=== PATIENT | male | born 1965 | race Caucasian/White ===

== ENCOUNTER 2018-03-12 18:36 | Inpatient (IN) | payer OTHER, MEDICAID ==
[~2018-03-12] VITALS: Ht 160 cm; Wt 66.7 kg
[2018-03-12 18:39] VITALS: BP_SYST 120
[2018-03-12] MEDS ORDERED: VANCOMYCIN HCL 1,000 MG in D5W 250 ML IV ONE (18:45)
[2018-03-12] MEDS ORDERED: ALBUTEROL SULFATE 0.083% 2.5 MG/3 ML VIAL.NEB INH ONE (18:50)
[2018-03-12] MEDS ORDERED: IPRATROPIUM BROM 0.5 MG/2.5 ML VIAL.NEB (ATROVENT) INH ONE (18:50)
[2018-03-12] MEDS ORDERED: NACL 0.9% 3,000 ML IV ONE (19:00)
[2018-03-12] MEDS ORDERED: GENTAMICIN 80 mg/100 mL NS 100 ML IV ONE (19:00)
[2018-03-12] MEDS ORDERED: LIP20 PO (19:05)
[2018-03-12] MEDS ORDERED: ACYC800T PO (19:05)
[2018-03-12] MEDS ORDERED: EMTR1TAB17 PO (19:06)
[2018-03-12] MEDS ORDERED: RITO100T PO (19:15)
[2018-03-12] MEDS ORDERED: OMEP20CA10 PO (19:15)
[2018-03-12] MEDS ORDERED: FURO-150 PO (19:15)
[2018-03-12] MEDS ORDERED: ZOLP10TA2 PO (19:15)
[2018-03-12] MEDS ORDERED: PARO-63 PO (19:15)
[2018-03-12] MEDS ORDERED: BENZ-16 PO (19:15)
[2018-03-12] MEDS ORDERED: DICY10CA13 PO (19:15)
[2018-03-12] MEDS ORDERED: IBUP-1619 PO (19:15)
[2018-03-12] MEDS ORDERED: POTA10TA15 PO (19:15)
[2018-03-12] MEDS ORDERED: LOPE2CAP PO (19:15)
[2018-03-12] MEDS ORDERED: TYC3 PO (19:15)
[2018-03-12] MEDS ORDERED: TRAZ-218 PO (19:15)
[2018-03-12] MEDS ORDERED: DARU800T PO (19:15)
[2018-03-12 19:23] LABS: CALCIUM 9.1 mg/dL (8.4-11.0); CREATININE 0.97 mg/dL (0.55-1.30); POTASSIUM 3.9 mmol/L (3.5-5.1)
[2018-03-12] MEDS ORDERED: VANCOMYCIN HCL 1000 MG/VIAL IV ONE (19:24)
[2018-03-12 19:30] LABS: ALBUMIN 1.8 g/dL (3.4-4.8); TOTAL BILIRUBIN 0.6 mg/dL (0.0-1.0)
[2018-03-12 19:32] LABS: BASOPHILS % (AUTO) 0.2 % (0.0-2.0); EOSINOPHILS # (AUTO) 0.5 K/uL (0.0-0.4); EOSINOPHILS % (AUTO) 3.6 % (0.0-4.0); HEMATOCRIT 24.1 % (36-54); HEMOGLOBIN 8.4 g/dL (14.0-18.0); LYMPHOCYTES # (AUTO) 0.8 K/uL (1.0-5.5); LYMPHOCYTES % (AUTO) 5.7 % (20.5-51.5); MEAN CORPUSCULAR HEMOGLOBIN 34 pg (27-31); MEAN CORPUSCULAR HGB CONC 35 % (32-36); MEAN CORPUSCULAR VOLUME 97 fL (79.0-98.0); MONOCYTES # (AUTO) 0.7 K/uL (0.0-1.0); MONOCYTES % (AUTO) 4.6 % (1.7-9.3); NEUTROPHILS # (AUTO) 12.7 K/uL (1.8-7.7); NEUTROPHILS % (AUTO) 85.9 % (40.0-70.0); PLATELET COUNT (AUTO) 130 K/uL (130-430); RED BLOOD CELL COUNT(AUTO) 2.48 MIL/uL (4.2-6.2); RED CELL DISTRIBUTION WIDTH 19.7 % (9.0-15.0); WHITE BLOOD COUNT (AUTO) 14.7 K/uL (4.8-10.8)
[2018-03-12 20:00] LABS: PROTHROMBIN TIME 10.2 SECS (9.5-12.5)
[2018-03-12] MEDS ORDERED: KCL 20 mEq in D5NS 1000 mL 1,000 ML IV ONE (21:00)
[2018-03-12] MEDS ORDERED: NACL 0.9% 1,000 ML IV ONE (21:00)
[2018-03-12 21:27] VITALS: BP_SYST 138
[2018-03-12] MEDS ORDERED: PIPERACILLIN/TAZO 3.375/DEX-IS 50 ML IV SCH (22:00)
[2018-03-12] MEDS ORDERED: ZOLPIDEM TARTRATE 5 MG TABLET PO PRN (22:15)
[2018-03-12 22:30] VITALS: BP_SYST 116
[2018-03-12] MEDS ORDERED: LevALBUTEROL HCL 1.25 MG/0.5 ML *CONC.* VIAL.NEB (XOPENEX CONC.) INH SCH (23:00)
[2018-03-12 23:21] VITALS: BP_SYST 124
[2018-03-12] MEDS: HYDROmorphone 1 MG INJ. 1 MG/ML AMPUL IVP PRN (23:21)
[2018-03-12 23:30] VITALS: BP_SYST 105
[2018-03-13] VITALS (23 sets, daily range): BP systolic 86–144
[2018-03-13] MEDS ORDERED: traZODone HCL 50 MG TABLET (DESYREL) ONE (00:51)
[2018-03-13] MEDS: LevALBUTEROL HCL 1.25 MG/0.5 ML *CONC.* VIAL.NEB (XOPENEX CONC.) INH SCH ×4 (01:00→19:36)
[2018-03-13] MEDS ORDERED: AZITHROMYCIN 500 MG in NS 250 ML IV SCH (04:00)
[2018-03-13] MEDS ORDERED: AZITHROMYCIN 500 MG/VIAL (ZITHROMAX) IV ONE (04:25)
[2018-03-13] MEDS: HYDROmorphone 1 MG INJ. 1 MG/ML AMPUL IVP PRN ×5 (04:36→21:16)
[2018-03-13 06:01] LABS: CALCIUM 8.3 mg/dL (8.4-11.0); CREATININE 0.78 mg/dL (0.55-1.30); POTASSIUM 3.3 mmol/L (3.5-5.1)
[2018-03-13 07:05] LABS: BASOPHILS % (AUTO) 0.2 % (0.0-2.0); EOSINOPHILS # (AUTO) 0.6 K/uL (0.0-0.4); EOSINOPHILS % (AUTO) 3.9 % (0.0-4.0); HEMOGLOBIN 7.1 g/dL (14.0-18.0); LYMPHOCYTES # (AUTO) 0.4 K/uL (1.0-5.5); LYMPHOCYTES % (AUTO) 2.4 % (20.5-51.5); MEAN CORPUSCULAR HEMOGLOBIN 34 pg (27-31); MEAN CORPUSCULAR HGB CONC 34 % (32-36); MEAN CORPUSCULAR VOLUME 99 fL (79.0-98.0); MONOCYTES # (AUTO) 0.7 K/uL (0.0-1.0); MONOCYTES % (AUTO) 4.6 % (1.7-9.3); PLATELET COUNT (AUTO) 120 K/uL (130-430); RED BLOOD CELL COUNT(AUTO) 2.13 MIL/uL (4.2-6.2); RED CELL DISTRIBUTION WIDTH 20.6 % (9.0-15.0); WHITE BLOOD COUNT (AUTO) 15.7 K/uL (4.8-10.8)
[2018-03-13] MEDS ORDERED: OMEPRAZOLE 20 MG CAPSULE.DR (PriLOSEC) PO ONE (07:15)
[2018-03-13] MEDS: ATORVASTATIN 20 MG TABLET PO SCH (08:00)
[2018-03-13] MEDS ORDERED: VANCOMYCIN HCL 1.25 GM/NS 250 ML IV SCH (08:00)
[2018-03-13] MEDS: PARoxetine HCL 20 MG TABLET PO SCH (08:00)
[2018-03-13] MEDS: ACYCLOVIR 400 MG TABLET PO SCH (08:00)
[2018-03-13 08:10] LABS: HEMATOCRIT 21.1 % (36-54)
[2018-03-13] MEDS ORDERED: traZODone HCL 50 MG TABLET (DESYREL) PO SCH (09:00)
[2018-03-13] MEDS: LevALBUTEROL HCL 1.25 MG/0.5 ML *CONC.* VIAL.NEB (XOPENEX CONC.) INH PRN (09:24)
[2018-03-13] MEDS ORDERED: FUROSEMIDE 20 MG/2 ML VIAL IVP ONE (09:30)
[2018-03-13] MEDS ORDERED: GENTAMICIN 120 mg/100 mL NS 100 ML IV SCH (10:00)
[2018-03-13 10:18] LABS: NEUTROPHILS % (AUTO) 88.9 % (40.0-70.0)
[2018-03-13] MEDS: FLUCONAZOLE 200 mg/ NS 100 ML IV SCH ×2 (11:30→12:58)
[2018-03-13] MEDS ORDERED: OSELTAMIVIR PHOSPHATE 75 MG CAPSULE PO ONE (11:30)
[2018-03-13] MEDS: MEROPENEM 1 GM in NS 100 ML IV SCH ×2 (14:28→22:47)
[2018-03-13] MEDS ORDERED: POTASSIUM CHLORIDE 20 MEQ TAB.PRT.SR PO ONE (15:15)
[2018-03-13 16:16] LABS: BILIRUBIN,URINE NEGATIVE (NEGATIVE); BLOOD, URINE NEGATIVE (NEGATIVE); CLARITY/URINE CLEAR (CLEAR); COLOR,URINE YELLOW (YELLOW); GLUCOSE,URINE NEGATIVE (NEGATIVE); KETONES,URINE NEGATIVE (NEGATIVE); LEUKOCYTE ESTERASE ,URINE NEGATIVE (NEGATIVE); NITRITE, URINE NEGATIVE (NEGATIVE); PROTEIN URINE NEGATIVE (NEGATIVE); UROBILINOGEN,URINE 0.2 (0.2-1.0)
[2018-03-13] MEDS ORDERED: DILTIAZEM HCL 125 MG in D5W 100 ML IV SCH (17:30)
[2018-03-13] MEDS ORDERED: DIGOXIN 0.5 MG/2 ML AMP IVP ONE (17:30)
[2018-03-13] MEDS: OSELTAMIVIR PHOSPHATE 75 MG CAPSULE PO SCH (20:49)
[2018-03-13] MEDS: traZODone HCL 50 MG TABLET (DESYREL) PO SCH (20:50)
[2018-03-13 22:24] LABS: BODY FLUID GLUCOSE 131 mg/dL; BODY FLUID TOTAL PROTEIN 2.9 g/dL
[2018-03-13 23:45] LABS: BODY FLUID SOURCE/ TYPE PLEURAL; SOURCE/TYPE ,BODY FLUID PLEURAL
[2018-03-13 23:46] LABS: APPEARANCE,SPUN,BODY FLUID CLEAR (CLEAR); BF APPEARANCE UNSPUN HAZY (CLEAR)
[2018-03-13 23:47] LABS: BODY FLUID COLOR RED (LT YELLOW)
[2018-03-13 23:58] LABS: BODY FLUID TOTAL VOLUME 800 mL; RBC, BODY FLUID 16872 /uL; WBC, BODY FLUID 164 /uL
[2018-03-13 23:59] LABS: EOSINOPHIL, BODY FLUID 25 %; LYMPHOCYTES, BODY FLUID 17 %; MONOCYTES,BODY FLUID 13 %; NEUTROPHIL, BODY FLUID 45 %
[2018-03-14] VITALS (24 sets, daily range): BP systolic 82–110
[2018-03-14] MEDS: LevALBUTEROL HCL 1.25 MG/0.5 ML *CONC.* VIAL.NEB (XOPENEX CONC.) INH SCH ×4 (02:08→20:34)
[2018-03-14] MEDS: ACETAMINOPHEN/CODEINE 300 MG-30 MG TABLET PO PRN ×3 (02:32→21:38)
[2018-03-14 05:31] LABS: ALBUMIN 1.4 g/dL (3.4-4.8); CALCIUM 8.1 mg/dL (8.4-11.0); CREATININE 0.74 mg/dL (0.55-1.30)
[2018-03-14 05:38] LABS: TOTAL IRON BIND. CAPACITY 110 ug/dL (250-450)
[2018-03-14 05:39] LABS: POTASSIUM 3.3 mmol/L (3.5-5.1)
[2018-03-14] MEDS: OMEPRAZOLE 20 MG CAPSULE.DR (PriLOSEC) PO SCH (06:23)
[2018-03-14] MEDS: MEROPENEM 1 GM in NS 100 ML IV SCH ×3 (06:23→21:39)
[2018-03-14 06:35] LABS: BASOPHILS % (AUTO) 0.1 % (0.0-2.0); EOSINOPHILS # (AUTO) 0.8 K/uL (0.0-0.4); HEMATOCRIT 22.6 % (36-54); LYMPHOCYTES # (AUTO) 0.5 K/uL (1.0-5.5); LYMPHOCYTES % (AUTO) 3.6 % (20.5-51.5); MEAN CORPUSCULAR HEMOGLOBIN 33 pg (27-31); MEAN CORPUSCULAR HGB CONC 34 % (32-36); MEAN CORPUSCULAR VOLUME 98 fL (79.0-98.0); MONOCYTES # (AUTO) 0.6 K/uL (0.0-1.0); MONOCYTES % (AUTO) 4.7 % (1.7-9.3); NEUTROPHILS # (AUTO) 10.7 K/uL (1.8-7.7); NEUTROPHILS % (AUTO) 85.6 % (40.0-70.0); RED BLOOD CELL COUNT(AUTO) 2.31 MIL/uL (4.2-6.2); RED CELL DISTRIBUTION WIDTH 19.8 % (9.0-15.0); WHITE BLOOD COUNT (AUTO) 12.6 K/uL (4.8-10.8)
[2018-03-14] MEDS: HYDROmorphone 1 MG INJ. 1 MG/ML AMPUL IVP PRN ×2 (06:41→16:31)
[2018-03-14 07:07] LABS: HEMOGLOBIN 7.6 g/dL (14.0-18.0)
[2018-03-14 08:00] LABS: PLATELET COUNT (AUTO) 82 K/uL (130-430)
[2018-03-14] MEDS: AZITHROMYCIN 500 MG in NS 250 ML IV SCH (08:48)
[2018-03-14] MEDS: PARoxetine HCL 20 MG TABLET PO SCH (08:49)
[2018-03-14] MEDS: OSELTAMIVIR PHOSPHATE 75 MG CAPSULE PO SCH ×2 (08:49→21:38)
[2018-03-14] MEDS: ACYCLOVIR 400 MG TABLET PO SCH (08:49)
[2018-03-14] MEDS: ATORVASTATIN 20 MG TABLET PO SCH (08:49)
[2018-03-14] MEDS ORDERED: POTASSIUM CHLORIDE 20 MEQ TAB.PRT.SR PO ONE (11:15)
[2018-03-14] MEDS: FLUCONAZOLE 200 mg/ NS 100 ML IV SCH (11:38)
[2018-03-14] MEDS ORDERED: POTASSIUM CHLORIDE 20 MEQ/PKT PACKET PO ONE (14:00)
[2018-03-14] MEDS: PROMETHAZINE-DM 6.25 MG-15 MG/5 ML UDC PO PRN ×2 (18:35→21:38)
[2018-03-14] MEDS: traZODone HCL 50 MG TABLET (DESYREL) PO SCH (21:38)
[2018-03-15] VITALS (24 sets, daily range): BP systolic 90–111
[2018-03-15] MEDS: LevALBUTEROL HCL 1.25 MG/0.5 ML *CONC.* VIAL.NEB (XOPENEX CONC.) INH SCH ×4 (00:21→19:52)
[2018-03-15] MEDS: ACETAMINOPHEN/CODEINE 300 MG-30 MG TABLET PO PRN ×4 (03:48→17:29)
[2018-03-15] MEDS: HYDROmorphone 1 MG INJ. 1 MG/ML AMPUL IVP PRN ×4 (04:25→21:27)
[2018-03-15] MEDS: MEROPENEM 1 GM in NS 100 ML IV SCH ×3 (05:12→21:25)
[2018-03-15] MEDS: OMEPRAZOLE 20 MG CAPSULE.DR (PriLOSEC) PO SCH (05:12)
[2018-03-15 06:19] LABS: CALCIUM 8.6 mg/dL (8.4-11.0); CREATININE 0.67 mg/dL (0.55-1.30); POTASSIUM 3.6 mmol/L (3.5-5.1)
[2018-03-15 07:23] LABS: HEMATOCRIT 23.8 % (36-54); HEMOGLOBIN 7.8 g/dL (14.0-18.0); MEAN CORPUSCULAR HEMOGLOBIN 33 pg (27-31); MEAN CORPUSCULAR HGB CONC 33 % (32-36); MEAN CORPUSCULAR VOLUME 99 fL (79.0-98.0); RED BLOOD CELL COUNT(AUTO) 2.41 MIL/uL (4.2-6.2); RED CELL DISTRIBUTION WIDTH 20.5 % (9.0-15.0); WHITE BLOOD COUNT (AUTO) 14.5 K/uL (4.8-10.8)
[2018-03-15 07:24] LABS: BASOPHILS % (AUTO) 0.2 % (0.0-2.0); EOSINOPHILS % (AUTO) 6.7 % (0.0-4.0); LYMPHOCYTES # (AUTO) 0.5 K/uL (1.0-5.5); LYMPHOCYTES % (AUTO) 3.2 % (20.5-51.5); MONOCYTES # (AUTO) 0.7 K/uL (0.0-1.0); MONOCYTES % (AUTO) 4.7 % (1.7-9.3); NEUTROPHILS # (AUTO) 12.3 K/uL (1.8-7.7); NEUTROPHILS % (AUTO) 85.2 % (40.0-70.0)
[2018-03-15 08:06] LABS: FOLATE (FOLIC ACID) 4.5 ng/mL (>3.0)
[2018-03-15 08:07] LABS: PLATELET COUNT (AUTO) 95 K/uL (130-430)
[2018-03-15] MEDS: AZITHROMYCIN 500 MG in NS 250 ML IV SCH (08:58)
[2018-03-15] MEDS: OSELTAMIVIR PHOSPHATE 75 MG CAPSULE PO SCH ×2 (08:59→21:25)
[2018-03-15] MEDS: PROMETHAZINE-DM 6.25 MG-15 MG/5 ML UDC PO PRN ×2 (08:59→17:29)
[2018-03-15] MEDS: ATORVASTATIN 20 MG TABLET PO SCH (08:59)
[2018-03-15] MEDS: ACYCLOVIR 400 MG TABLET PO SCH (08:59)
[2018-03-15] MEDS: PARoxetine HCL 20 MG TABLET PO SCH (08:59)
[2018-03-15] MEDS ORDERED: POTASSIUM CHLORIDE 20 MEQ TAB.PRT.SR PO ONE (11:15)
[2018-03-15] MEDS: FLUCONAZOLE 200 mg/ NS 100 ML IV SCH (12:06)
[2018-03-15] MEDS ORDERED: NOREPINEPHRINE BITARTRATE 4 MG in NS 246 ML IV PRN (12:30)
[2018-03-15] MEDS: BUDESONIDE 0.5 MG/2 ML AMPUL.NEB INH SCH (20:05)
[2018-03-15] MEDS: traZODone HCL 50 MG TABLET (DESYREL) PO SCH (21:25)
[2018-03-16] VITALS (24 sets, daily range): BP systolic 96–120
[2018-03-16] MEDS: ACETAMINOPHEN/CODEINE 300 MG-30 MG TABLET PO PRN ×4 (00:47→19:46)
[2018-03-16] MEDS: PROMETHAZINE-DM 6.25 MG-15 MG/5 ML UDC PO PRN ×5 (00:48→23:45)
[2018-03-16] MEDS: LevALBUTEROL HCL 1.25 MG/0.5 ML *CONC.* VIAL.NEB (XOPENEX CONC.) INH SCH ×4 (02:25→19:59)
[2018-03-16] MEDS: OMEPRAZOLE 20 MG CAPSULE.DR (PriLOSEC) PO SCH (05:20)
[2018-03-16] MEDS: MEROPENEM 1 GM in NS 100 ML IV SCH ×3 (05:21→21:00)
[2018-03-16] MEDS: HYDROmorphone 1 MG INJ. 1 MG/ML AMPUL IVP PRN ×4 (05:22→20:59)
[2018-03-16 06:21] LABS: BASOPHILS % (AUTO) 0.1 % (0.0-2.0); EOSINOPHILS # (AUTO) 1.4 K/uL (0.0-0.4); EOSINOPHILS % (AUTO) 9.3 % (0.0-4.0); HEMATOCRIT 23.8 % (36-54); LYMPHOCYTES # (AUTO) 0.4 K/uL (1.0-5.5); LYMPHOCYTES % (AUTO) 2.8 % (20.5-51.5); MEAN CORPUSCULAR HEMOGLOBIN 33 pg (27-31); MEAN CORPUSCULAR HGB CONC 34 % (32-36); MEAN CORPUSCULAR VOLUME 99 fL (79.0-98.0); MONOCYTES # (AUTO) 0.6 K/uL (0.0-1.0); MONOCYTES % (AUTO) 4.1 % (1.7-9.3); NEUTROPHILS # (AUTO) 12.9 K/uL (1.8-7.7); NEUTROPHILS % (AUTO) 83.7 % (40.0-70.0); PLATELET COUNT (AUTO) 79 K/uL (130-430); RED BLOOD CELL COUNT(AUTO) 2.41 MIL/uL (4.2-6.2); WHITE BLOOD COUNT (AUTO) 15.3 K/uL (4.8-10.8)
[2018-03-16 06:54] LABS: CALCIUM 9.4 mg/dL (8.4-11.0); CREATININE 0.76 mg/dL (0.55-1.30); POTASSIUM 3.8 mmol/L (3.5-5.1)
[2018-03-16 07:01] LABS: ALBUMIN 1.4 g/dL (3.4-4.8); TOTAL BILIRUBIN 0.4 mg/dL (0.0-1.0)
[2018-03-16] MEDS: ACYCLOVIR 400 MG TABLET PO SCH (08:17)
[2018-03-16] MEDS: PARoxetine HCL 20 MG TABLET PO SCH (08:17)
[2018-03-16] MEDS: ATORVASTATIN 20 MG TABLET PO SCH (08:17)
[2018-03-16] MEDS: OSELTAMIVIR PHOSPHATE 75 MG CAPSULE PO SCH ×2 (08:17→20:58)
[2018-03-16] MEDS: AZITHROMYCIN 500 MG in NS 250 ML IV SCH (08:17)
[2018-03-16] MEDS: BUDESONIDE 0.5 MG/2 ML AMPUL.NEB INH SCH ×2 (10:03→22:00)
[2018-03-16 10:08] LABS: RED CELL DISTRIBUTION WIDTH 19.9 % (9.0-15.0)
[2018-03-16] MEDS ORDERED: RITONAVIR 100 MG CAPSULE (NORVIR) PO SCH (10:45)
[2018-03-16] MEDS ORDERED: PATIENT'S OWN TABLET PO SCH (10:45)
[2018-03-16] MEDS: FLUCONAZOLE 200 mg/ NS 100 ML IV SCH (11:13)
[2018-03-16] MEDS ORDERED: RITONAVIR 100 MG PO ONE (12:00)
[2018-03-16] MEDS ORDERED: EMTRICITABINE PO ONE (12:00)
[2018-03-16] MEDS ORDERED: TENOFOVIR PO ONE (12:00)
[2018-03-16] MEDS ORDERED: DARUNAVIR 800 MG PO ONE (12:00)
[2018-03-16] MEDS: traZODone HCL 50 MG TABLET (DESYREL) PO SCH (20:58)
[2018-03-17] VITALS (25 sets, daily range): BP systolic 91–118
[2018-03-17] MEDS: LevALBUTEROL HCL 1.25 MG/0.5 ML *CONC.* VIAL.NEB (XOPENEX CONC.) INH SCH ×4 (00:54→19:33)
[2018-03-17] MEDS: HYDROmorphone 1 MG INJ. 1 MG/ML AMPUL IVP PRN ×5 (02:38→21:47)
[2018-03-17] MEDS: OMEPRAZOLE 20 MG CAPSULE.DR (PriLOSEC) PO SCH (05:03)
[2018-03-17] MEDS: MEROPENEM 1 GM in NS 100 ML IV SCH ×3 (05:03→21:47)
[2018-03-17] MEDS: PROMETHAZINE-DM 6.25 MG-15 MG/5 ML UDC PO PRN ×4 (05:03→20:56)
[2018-03-17 07:02] LABS: CALCIUM 9.4 mg/dL (8.4-11.0); CREATININE 0.84 mg/dL (0.55-1.30); POTASSIUM 3.7 mmol/L (3.5-5.1)
[2018-03-17 07:04] LABS: BASOPHILS % (AUTO) 0.1 % (0.0-2.0); EOSINOPHILS # (AUTO) 1.6 K/uL (0.0-0.4); EOSINOPHILS % (AUTO) 10.4 % (0.0-4.0); HEMATOCRIT 22.5 % (36-54); HEMOGLOBIN 7.5 g/dL (14.0-18.0); LYMPHOCYTES # (AUTO) 0.5 K/uL (1.0-5.5); LYMPHOCYTES % (AUTO) 3.3 % (20.5-51.5); MEAN CORPUSCULAR HEMOGLOBIN 33 pg (27-31); MEAN CORPUSCULAR HGB CONC 34 % (32-36); MEAN CORPUSCULAR VOLUME 100 fL (79.0-98.0); MONOCYTES % (AUTO) 6.1 % (1.7-9.3); NEUTROPHILS # (AUTO) 12.6 K/uL (1.8-7.7); PLATELET COUNT (AUTO) 85 K/uL (130-430); RED BLOOD CELL COUNT(AUTO) 2.25 MIL/uL (4.2-6.2); RED CELL DISTRIBUTION WIDTH 20.8 % (9.0-15.0); WHITE BLOOD COUNT (AUTO) 15.7 K/uL (4.8-10.8)
[2018-03-17 07:09] LABS: ALBUMIN 1.4 g/dL (3.4-4.8); TOTAL BILIRUBIN 0.4 mg/dL (0.0-1.0)
[2018-03-17] MEDS: BUDESONIDE 0.5 MG/2 ML AMPUL.NEB INH SCH ×2 (08:04→21:29)
[2018-03-17] MEDS: ACYCLOVIR 400 MG TABLET PO SCH (08:53)
[2018-03-17] MEDS: AZITHROMYCIN 500 MG in NS 250 ML IV SCH (08:53)
[2018-03-17] MEDS: OSELTAMIVIR PHOSPHATE 75 MG CAPSULE PO SCH ×2 (08:53→20:48)
[2018-03-17] MEDS: ATORVASTATIN 20 MG TABLET PO SCH (08:53)
[2018-03-17] MEDS: PARoxetine HCL 20 MG TABLET PO SCH (08:53)
[2018-03-17] MEDS: RITONAVIR 100 MG PO SCH (08:55)
[2018-03-17] MEDS: DARUNAVIR 800 MG PO SCH (08:55)
[2018-03-17] MEDS: TENOFOVIR PO SCH (08:56)
[2018-03-17] MEDS: EMTRICITABINE PO SCH (08:56)
[2018-03-17] MEDS: FLUCONAZOLE 200 mg/ NS 100 ML IV SCH (10:56)
[2018-03-17] MEDS ORDERED: FUROSEMIDE 20 MG/2 ML VIAL IVP ONE (11:15)
[2018-03-17] MEDS ORDERED: FUROSEMIDE 40 MG/4 ML VIAL IVP ONE (11:15)
[2018-03-17 11:28] LABS: NEUTROPHILS % (AUTO) 80.1 % (40.0-70.0)
[2018-03-17] MEDS: ALBUMIN HUMAN 25% 50 ML IV SCH ×3 (12:08→22:59)
[2018-03-17] MEDS: traZODone HCL 50 MG TABLET (DESYREL) PO SCH (20:48)
[2018-03-18] VITALS (24 sets, daily range): BP systolic 91–127
[2018-03-18] MEDS: LevALBUTEROL HCL 1.25 MG/0.5 ML *CONC.* VIAL.NEB (XOPENEX CONC.) INH SCH ×4 (01:17→19:41)
[2018-03-18] MEDS: HYDROmorphone 1 MG INJ. 1 MG/ML AMPUL IVP PRN ×5 (02:03→20:33)
[2018-03-18] MEDS: PROMETHAZINE-DM 6.25 MG-15 MG/5 ML UDC PO PRN ×2 (03:45→08:05)
[2018-03-18] MEDS: MEROPENEM 1 GM in NS 100 ML IV SCH ×3 (05:46→22:09)
[2018-03-18] MEDS: OMEPRAZOLE 20 MG CAPSULE.DR (PriLOSEC) PO SCH (05:46)
[2018-03-18 07:09] LABS: ALBUMIN 1.8 g/dL (3.4-4.8); CALCIUM 9.6 mg/dL (8.4-11.0); CREATININE 0.73 mg/dL (0.55-1.30); POTASSIUM 3.2 mmol/L (3.5-5.1); TOTAL BILIRUBIN 0.5 mg/dL (0.0-1.0)
[2018-03-18 07:12] LABS: BASOPHILS % (AUTO) 0.1 % (0.0-2.0); EOSINOPHILS # (AUTO) 1.6 K/uL (0.0-0.4); EOSINOPHILS % (AUTO) 11.4 % (0.0-4.0); LYMPHOCYTES # (AUTO) 0.5 K/uL (1.0-5.5); LYMPHOCYTES % (AUTO) 3.6 % (20.5-51.5); MEAN CORPUSCULAR HEMOGLOBIN 33 pg (27-31); MEAN CORPUSCULAR HGB CONC 33 % (32-36); MEAN CORPUSCULAR VOLUME 100 fL (79.0-98.0); MONOCYTES # (AUTO) 0.9 K/uL (0.0-1.0); MONOCYTES % (AUTO) 6.6 % (1.7-9.3); NEUTROPHILS # (AUTO) 10.9 K/uL (1.8-7.7); PLATELET COUNT (AUTO) 84 K/uL (130-430); RED BLOOD CELL COUNT(AUTO) 2.13 MIL/uL (4.2-6.2); RED CELL DISTRIBUTION WIDTH 20.4 % (9.0-15.0); WHITE BLOOD COUNT (AUTO) 13.9 K/uL (4.8-10.8)
[2018-03-18] MEDS: BUDESONIDE 0.5 MG/2 ML AMPUL.NEB INH SCH ×2 (07:51→21:42)
[2018-03-18] MEDS: AZITHROMYCIN 500 MG in NS 250 ML IV SCH (08:05)
[2018-03-18] MEDS: ATORVASTATIN 20 MG TABLET PO SCH (08:05)
[2018-03-18] MEDS: OSELTAMIVIR PHOSPHATE 75 MG CAPSULE PO SCH (08:05)
[2018-03-18] MEDS: PARoxetine HCL 20 MG TABLET PO SCH (08:05)
[2018-03-18] MEDS: ACYCLOVIR 400 MG TABLET PO SCH (08:05)
[2018-03-18] MEDS: DARUNAVIR 800 MG PO SCH (08:06)
[2018-03-18] MEDS: TENOFOVIR PO SCH (08:07)
[2018-03-18] MEDS: EMTRICITABINE PO SCH (08:07)
[2018-03-18] MEDS: RITONAVIR 100 MG PO SCH (08:07)
[2018-03-18 08:21] LABS: HEMATOCRIT 21.3 % (36-54)
[2018-03-18] MEDS ORDERED: POTASSIUM CHLORIDE 20 MEQ TAB.PRT.SR PO ONE (10:15)
[2018-03-18] MEDS ORDERED: FUROSEMIDE 20 MG/2 ML VIAL IVP ONE (10:15)
[2018-03-18] MEDS: FLUCONAZOLE 200 mg/ NS 100 ML IV SCH (11:20)
[2018-03-18 11:28] LABS: NEUTROPHILS % (AUTO) 78.3 % (40.0-70.0)
[2018-03-18] MEDS: ACETAMINOPHEN/CODEINE 300 MG-30 MG TABLET PO PRN (18:58)
[2018-03-18] MEDS: traZODone HCL 50 MG TABLET (DESYREL) PO SCH (20:32)
[2018-03-19] VITALS (24 sets, daily range): BP systolic 90–121
[2018-03-19] MEDS: LevALBUTEROL HCL 1.25 MG/0.5 ML *CONC.* VIAL.NEB (XOPENEX CONC.) INH SCH ×4 (00:52→19:37)
[2018-03-19] MEDS: PROMETHAZINE-DM 6.25 MG-15 MG/5 ML UDC PO PRN ×3 (01:30→15:53)
[2018-03-19] MEDS: ACETAMINOPHEN/CODEINE 300 MG-30 MG TABLET PO PRN ×2 (01:30→19:48)
[2018-03-19] MEDS: HYDROmorphone 1 MG INJ. 1 MG/ML AMPUL IVP PRN ×5 (02:39→21:16)
[2018-03-19] MEDS: MEROPENEM 1 GM in NS 100 ML IV SCH ×3 (05:43→20:59)
[2018-03-19] MEDS: OMEPRAZOLE 20 MG CAPSULE.DR (PriLOSEC) PO SCH (05:43)
[2018-03-19 06:41] LABS: BASOPHILS % (AUTO) 0.3 % (0.0-2.0); EOSINOPHILS % (AUTO) 13.1 % (0.0-4.0); HEMATOCRIT 25.6 % (36-54); HEMOGLOBIN 8.4 g/dL (14.0-18.0); LYMPHOCYTES # (AUTO) 0.5 K/uL (1.0-5.5); LYMPHOCYTES % (AUTO) 3.6 % (20.5-51.5); MEAN CORPUSCULAR HEMOGLOBIN 32 pg (27-31); MEAN CORPUSCULAR HGB CONC 33 % (32-36); MEAN CORPUSCULAR VOLUME 98 fL (79.0-98.0); MONOCYTES # (AUTO) 0.9 K/uL (0.0-1.0); MONOCYTES % (AUTO) 6.2 % (1.7-9.3); NEUTROPHILS # (AUTO) 11.8 K/uL (1.8-7.7); PLATELET COUNT (AUTO) 86 K/uL (130-430); RED BLOOD CELL COUNT(AUTO) 2.63 MIL/uL (4.2-6.2); RED CELL DISTRIBUTION WIDTH 21.5 % (9.0-15.0); WHITE BLOOD COUNT (AUTO) 15.2 K/uL (4.8-10.8)
[2018-03-19 06:46] LABS: CALCIUM 10.2 mg/dL (8.4-11.0); CREATININE 0.73 mg/dL (0.55-1.30); POTASSIUM 3.6 mmol/L (3.5-5.1)
[2018-03-19 08:16] LABS: NEUTROPHILS % (AUTO) 76.8 % (40.0-70.0)
[2018-03-19] MEDS: PARoxetine HCL 20 MG TABLET PO SCH (08:33)
[2018-03-19] MEDS: ATORVASTATIN 20 MG TABLET PO SCH (08:33)
[2018-03-19] MEDS: ACYCLOVIR 400 MG TABLET PO SCH (08:34)
[2018-03-19] MEDS: TENOFOVIR PO SCH (08:35)
[2018-03-19] MEDS: EMTRICITABINE PO SCH (08:35)
[2018-03-19] MEDS: DARUNAVIR 800 MG PO SCH (08:36)
[2018-03-19] MEDS: RITONAVIR 100 MG PO SCH (08:37)
[2018-03-19] MEDS: BUDESONIDE 0.5 MG/2 ML AMPUL.NEB INH SCH ×2 (09:05→20:00)
[2018-03-19] MEDS ORDERED: POTASSIUM CHLORIDE 20 MEQ TAB.PRT.SR PO ONE (10:30)
[2018-03-19] MEDS: FLUCONAZOLE 200 mg/ NS 100 ML IV SCH (10:44)
[2018-03-19] MEDS: traZODone HCL 50 MG TABLET (DESYREL) PO SCH (20:59)
[2018-03-20] VITALS (24 sets, daily range): BP systolic 91–130
[2018-03-20] MEDS: LevALBUTEROL HCL 1.25 MG/0.5 ML *CONC.* VIAL.NEB (XOPENEX CONC.) INH SCH ×4 (01:18→18:10)
[2018-03-20] MEDS: HYDROmorphone 1 MG INJ. 1 MG/ML AMPUL IVP PRN ×5 (01:44→20:17)
[2018-03-20] MEDS: PROMETHAZINE-DM 6.25 MG-15 MG/5 ML UDC PO PRN ×3 (01:44→21:00)
[2018-03-20] MEDS: OMEPRAZOLE 20 MG CAPSULE.DR (PriLOSEC) PO SCH (05:01)
[2018-03-20] MEDS: PARoxetine HCL 20 MG TABLET PO SCH (08:18)
[2018-03-20] MEDS: ATORVASTATIN 20 MG TABLET PO SCH (08:18)
[2018-03-20] MEDS: TENOFOVIR PO SCH (08:22)
[2018-03-20] MEDS: EMTRICITABINE PO SCH (08:22)
[2018-03-20] MEDS: DARUNAVIR 800 MG PO SCH (08:23)
[2018-03-20] MEDS: RITONAVIR 100 MG PO SCH (08:27)
[2018-03-20] MEDS: BUDESONIDE 0.5 MG/2 ML AMPUL.NEB INH SCH ×2 (09:04→21:03)
[2018-03-20 09:38] LABS: BASOPHILS % (AUTO) 0.2 % (0.0-2.0); EOSINOPHILS # (AUTO) 1.6 K/uL (0.0-0.4); EOSINOPHILS % (AUTO) 9.6 % (0.0-4.0); HEMATOCRIT 26.5 % (36-54); HEMOGLOBIN 8.7 g/dL (14.0-18.0); LYMPHOCYTES # (AUTO) 0.6 K/uL (1.0-5.5); LYMPHOCYTES % (AUTO) 3.8 % (20.5-51.5); MEAN CORPUSCULAR HEMOGLOBIN 32 pg (27-31); MEAN CORPUSCULAR HGB CONC 33 % (32-36); MEAN CORPUSCULAR VOLUME 97 fL (79.0-98.0); MONOCYTES # (AUTO) 0.9 K/uL (0.0-1.0); MONOCYTES % (AUTO) 5.5 % (1.7-9.3); NEUTROPHILS # (AUTO) 13.2 K/uL (1.8-7.7); PLATELET COUNT (AUTO) 85 K/uL (130-430); RED BLOOD CELL COUNT(AUTO) 2.73 MIL/uL (4.2-6.2); RED CELL DISTRIBUTION WIDTH 20.7 % (9.0-15.0); WHITE BLOOD COUNT (AUTO) 16.3 K/uL (4.8-10.8)
[2018-03-20 10:57] LABS: NEUTROPHILS % (AUTO) 80.9 % (40.0-70.0)
[2018-03-20] MEDS: MEROPENEM 1 GM IVPB PREMIX 50 ML IV SCH ×2 (11:32→19:22)
[2018-03-20] MEDS: traZODone HCL 50 MG TABLET (DESYREL) PO SCH (20:17)
[2018-03-21] VITALS (25 sets, daily range): BP systolic 92–126
[2018-03-21] MEDS: LevALBUTEROL HCL 1.25 MG/0.5 ML *CONC.* VIAL.NEB (XOPENEX CONC.) INH SCH ×4 (01:12→19:55)
[2018-03-21] MEDS ORDERED: ACETAMINOPHEN 325 MG TABLET PO PRN (02:00)
[2018-03-21] MEDS: MEROPENEM 1 GM IVPB PREMIX 50 ML IV SCH ×3 (04:17→20:12)
[2018-03-21] MEDS: OMEPRAZOLE 20 MG CAPSULE.DR (PriLOSEC) PO SCH (05:09)
[2018-03-21] MEDS: HYDROmorphone 1 MG INJ. 1 MG/ML AMPUL IVP PRN ×4 (06:12→22:02)
[2018-03-21 06:38] LABS: BASOPHILS % (AUTO) 0.2 % (0.0-2.0); EOSINOPHILS # (AUTO) 0.9 K/uL (0.0-0.4); EOSINOPHILS % (AUTO) 4.6 % (0.0-4.0); HEMATOCRIT 26.1 % (36-54); HEMOGLOBIN 8.5 g/dL (14.0-18.0); LYMPHOCYTES # (AUTO) 0.6 K/uL (1.0-5.5); LYMPHOCYTES % (AUTO) 3.1 % (20.5-51.5); MEAN CORPUSCULAR HEMOGLOBIN 32 pg (27-31); MEAN CORPUSCULAR HGB CONC 33 % (32-36); MEAN CORPUSCULAR VOLUME 99 fL (79.0-98.0); MONOCYTES # (AUTO) 1.2 K/uL (0.0-1.0); MONOCYTES % (AUTO) 6.3 % (1.7-9.3); NEUTROPHILS # (AUTO) 16.2 K/uL (1.8-7.7); NEUTROPHILS % (AUTO) 85.8 % (40.0-70.0); PLATELET COUNT (AUTO) 78 K/uL (130-430); RED BLOOD CELL COUNT(AUTO) 2.64 MIL/uL (4.2-6.2); RED CELL DISTRIBUTION WIDTH 21.5 % (9.0-15.0); WHITE BLOOD COUNT (AUTO) 18.9 K/uL (4.8-10.8)
[2018-03-21] MEDS: RITONAVIR 100 MG PO SCH (09:09)
[2018-03-21] MEDS: ATORVASTATIN 20 MG TABLET PO SCH (09:09)
[2018-03-21] MEDS: PARoxetine HCL 20 MG TABLET PO SCH (09:09)
[2018-03-21] MEDS: TENOFOVIR PO SCH (09:11)
[2018-03-21] MEDS: DARUNAVIR 800 MG PO SCH (09:11)
[2018-03-21] MEDS: EMTRICITABINE PO SCH (09:11)
[2018-03-21] MEDS: BUDESONIDE 0.5 MG/2 ML AMPUL.NEB INH SCH ×2 (09:16→22:31)
[2018-03-21] MEDS: EPOETIN ALFA 3,000 UNITS/ML VIAL SUBCUT SCH (09:19)
[2018-03-21] MEDS: PROMETHAZINE-DM 6.25 MG-15 MG/5 ML UDC PO PRN (11:21)
[2018-03-21] MEDS: AZITHROMYCIN 500 MG in NS 250 ML IV SCH (13:08)
[2018-03-21] MEDS: traZODone HCL 50 MG TABLET (DESYREL) PO SCH (21:00)
[2018-03-21] MEDS ORDERED: BUDESONIDE 0.5 MG/2 ML AMPUL.NEB ONE (22:38)
[2018-03-22] VITALS (24 sets, daily range): BP systolic 93–122
[2018-03-22] MEDS: LevALBUTEROL HCL 1.25 MG/0.5 ML *CONC.* VIAL.NEB (XOPENEX CONC.) INH SCH ×4 (01:23→20:18)
[2018-03-22] MEDS: HYDROmorphone 1 MG INJ. 1 MG/ML AMPUL IVP PRN ×6 (02:24→23:03)
[2018-03-22] MEDS: MEROPENEM 1 GM IVPB PREMIX 50 ML IV SCH (03:09)
[2018-03-22 06:12] LABS: ALBUMIN 1.5 g/dL (3.4-4.8); CREATININE 0.76 mg/dL (0.55-1.30); POTASSIUM 3.4 mmol/L (3.5-5.1); TOTAL BILIRUBIN 0.5 mg/dL (0.0-1.0)
[2018-03-22 06:31] LABS: BASOPHILS # (AUTO) 0.1 K/uL (0.0-0.2); BASOPHILS % (AUTO) 0.3 % (0.0-2.0); EOSINOPHILS # (AUTO) 0.8 K/uL (0.0-0.4); EOSINOPHILS % (AUTO) 4.3 % (0.0-4.0); HEMATOCRIT 23.9 % (36-54); HEMOGLOBIN 7.7 g/dL (14.0-18.0); LYMPHOCYTES # (AUTO) 0.6 K/uL (1.0-5.5); MEAN CORPUSCULAR HEMOGLOBIN 32 pg (27-31); MEAN CORPUSCULAR HGB CONC 32 % (32-36); MEAN CORPUSCULAR VOLUME 99 fL (79.0-98.0); MONOCYTES % (AUTO) 5.5 % (1.7-9.3); NEUTROPHILS # (AUTO) 16.5 K/uL (1.8-7.7); NEUTROPHILS % (AUTO) 86.9 % (40.0-70.0); PLATELET COUNT (AUTO) 76 K/uL (130-430); RED BLOOD CELL COUNT(AUTO) 2.41 MIL/uL (4.2-6.2); RED CELL DISTRIBUTION WIDTH 21.4 % (9.0-15.0)
[2018-03-22] MEDS: OMEPRAZOLE 20 MG CAPSULE.DR (PriLOSEC) PO SCH (06:46)
[2018-03-22] MEDS ORDERED: HYDROmorphone 1 MG INJ. 1 MG/ML AMPUL ONE (06:48)
[2018-03-22] MEDS: EMTRICITABINE PO SCH (08:25)
[2018-03-22] MEDS: DARUNAVIR 800 MG PO SCH (08:25)
[2018-03-22] MEDS: ATORVASTATIN 20 MG TABLET PO SCH (08:25)
[2018-03-22] MEDS: TENOFOVIR PO SCH (08:25)
[2018-03-22] MEDS: RITONAVIR 100 MG PO SCH (08:26)
[2018-03-22] MEDS: PARoxetine HCL 20 MG TABLET PO SCH (08:26)
[2018-03-22] MEDS: PROMETHAZINE-DM 6.25 MG-15 MG/5 ML UDC PO PRN (09:44)
[2018-03-22] MEDS: BUDESONIDE 0.5 MG/2 ML AMPUL.NEB INH SCH ×2 (09:46→20:54)
[2018-03-22] MEDS ORDERED: ACETAMINOPHEN 325 MG TABLET PO PRN (10:30)
[2018-03-22] MEDS: MEROPENEM 1 GM in NS 100 ML IV SCH ×2 (10:34→21:14)
[2018-03-22] MEDS: AZITHROMYCIN 500 MG in NS 250 ML IV SCH (11:01)
[2018-03-22] MEDS: traZODone HCL 50 MG TABLET (DESYREL) PO SCH (21:00)
[2018-03-23] VITALS (22 sets, daily range): BP systolic 92–117
[2018-03-23] MEDS: LevALBUTEROL HCL 1.25 MG/0.5 ML *CONC.* VIAL.NEB (XOPENEX CONC.) INH SCH ×4 (01:07→19:55)
[2018-03-23] MEDS: MEROPENEM 1 GM in NS 100 ML IV SCH ×3 (03:37→19:33)
[2018-03-23] MEDS: HYDROmorphone 1 MG INJ. 1 MG/ML AMPUL IVP PRN ×5 (03:38→21:10)
[2018-03-23] MEDS: OMEPRAZOLE 20 MG CAPSULE.DR (PriLOSEC) PO SCH (05:47)
[2018-03-23] MEDS: ACETAMINOPHEN/CODEINE 300 MG-30 MG TABLET PO PRN (05:52)
[2018-03-23] MEDS: BUDESONIDE 0.5 MG/2 ML AMPUL.NEB INH SCH ×2 (08:00→20:42)
[2018-03-23] MEDS: EMTRICITABINE PO SCH (08:46)
[2018-03-23] MEDS: PARoxetine HCL 20 MG TABLET PO SCH (08:46)
[2018-03-23] MEDS: DARUNAVIR 800 MG PO SCH (08:46)
[2018-03-23] MEDS: TENOFOVIR PO SCH (08:46)
[2018-03-23] MEDS: ATORVASTATIN 20 MG TABLET PO SCH (08:46)
[2018-03-23] MEDS: RITONAVIR 100 MG PO SCH (08:46)
[2018-03-23] MEDS: traZODone HCL 50 MG TABLET (DESYREL) PO SCH (21:05)
[2018-03-24] VITALS (24 sets, daily range): BP systolic 92–127
[2018-03-24] MEDS: LevALBUTEROL HCL 1.25 MG/0.5 ML *CONC.* VIAL.NEB (XOPENEX CONC.) INH SCH ×4 (00:54→20:00)
[2018-03-24] MEDS: MEROPENEM 1 GM in NS 100 ML IV SCH (03:02)
[2018-03-24] MEDS: HYDROmorphone 1 MG INJ. 1 MG/ML AMPUL IVP PRN ×4 (03:53→16:49)
[2018-03-24] MEDS: OMEPRAZOLE 20 MG CAPSULE.DR (PriLOSEC) PO SCH (06:15)
[2018-03-24] MEDS: BUDESONIDE 0.5 MG/2 ML AMPUL.NEB INH SCH ×2 (08:09→20:33)
[2018-03-24] MEDS: ATORVASTATIN 20 MG TABLET PO SCH (08:20)
[2018-03-24] MEDS: PARoxetine HCL 20 MG TABLET PO SCH (08:20)
[2018-03-24] MEDS: EMTRICITABINE PO SCH (08:26)
[2018-03-24] MEDS: TENOFOVIR PO SCH (08:26)
[2018-03-24] MEDS: DARUNAVIR 800 MG PO SCH (08:27)
[2018-03-24] MEDS: RITONAVIR 100 MG PO SCH (08:27)
[2018-03-24] MEDS: EPOETIN ALFA 3,000 UNITS/ML VIAL SUBCUT SCH (08:43)
[2018-03-24] MEDS ORDERED: PREDNISONE 20 MG TABLET PO ONE (11:00)
[2018-03-24] MEDS: VANCOMYCIN HCL 1.25 GM/NS 250 ML IV SCH (11:56)
[2018-03-24] MEDS ORDERED: MEPRON PO SCH (18:00)
[2018-03-24] MEDS: PREDNISONE 20 MG TABLET PO SCH (18:17)
[2018-03-24] MEDS: ACETAMINOPHEN/CODEINE 300 MG-30 MG TABLET PO PRN (20:58)
[2018-03-24] MEDS: traZODone HCL 50 MG TABLET (DESYREL) PO SCH (20:58)
[2018-03-24] MEDS: CEFEPIME 1 GM in D5W 50 ML IV SCH (20:59)
[2018-03-25] VITALS (24 sets, daily range): BP systolic 89–134
[2018-03-25] MEDS: VANCOMYCIN HCL 1.25 GM/NS 250 ML IV SCH ×3 (00:02→23:44)
[2018-03-25] MEDS: LevALBUTEROL HCL 1.25 MG/0.5 ML *CONC.* VIAL.NEB (XOPENEX CONC.) INH SCH ×4 (01:04→19:34)
[2018-03-25] MEDS: HYDROmorphone 1 MG INJ. 1 MG/ML AMPUL IVP PRN ×4 (02:54→17:40)
[2018-03-25] MEDS: OMEPRAZOLE 20 MG CAPSULE.DR (PriLOSEC) PO SCH (05:50)
[2018-03-25 06:41] LABS: BASOPHILS % (AUTO) 0.1 % (0.0-2.0); HEMOGLOBIN 7.5 g/dL (14.0-18.0); LYMPHOCYTES # (AUTO) 0.4 K/uL (1.0-5.5); LYMPHOCYTES % (AUTO) 2.3 % (20.5-51.5); MEAN CORPUSCULAR HEMOGLOBIN 33 pg (27-31); MEAN CORPUSCULAR HGB CONC 33 % (32-36); MEAN CORPUSCULAR VOLUME 100 fL (79.0-98.0); MONOCYTES # (AUTO) 0.7 K/uL (0.0-1.0); MONOCYTES % (AUTO) 3.7 % (1.7-9.3); NEUTROPHILS # (AUTO) 18.4 K/uL (1.8-7.7); NEUTROPHILS % (AUTO) 93.9 % (40.0-70.0); RED BLOOD CELL COUNT(AUTO) 2.31 MIL/uL (4.2-6.2); RED CELL DISTRIBUTION WIDTH 21.4 % (9.0-15.0); WHITE BLOOD COUNT (AUTO) 19.5 K/uL (4.8-10.8)
[2018-03-25 07:01] LABS: CALCIUM 9.8 mg/dL (8.4-11.0); CREATININE 0.67 mg/dL (0.55-1.30); POTASSIUM 3.4 mmol/L (3.5-5.1)
[2018-03-25 07:11] LABS: ALBUMIN 1.3 g/dL (3.4-4.8); TOTAL BILIRUBIN 0.3 mg/dL (0.0-1.0)
[2018-03-25] MEDS ORDERED: MEPRON PO SCH (08:00)
[2018-03-25] MEDS: PARoxetine HCL 20 MG TABLET PO SCH (08:15)
[2018-03-25] MEDS: PREDNISONE 20 MG TABLET PO SCH ×2 (08:16→17:40)
[2018-03-25] MEDS: ATORVASTATIN 20 MG TABLET PO SCH (08:16)
[2018-03-25] MEDS: DARUNAVIR 800 MG PO SCH (08:17)
[2018-03-25] MEDS: EMTRICITABINE PO SCH (08:18)
[2018-03-25] MEDS: TENOFOVIR PO SCH (08:18)
[2018-03-25] MEDS: RITONAVIR 100 MG PO SCH (08:18)
[2018-03-25 08:29] LABS: PLATELET COUNT (AUTO) 55 K/uL (130-430)
[2018-03-25] MEDS: BUDESONIDE 0.5 MG/2 ML AMPUL.NEB INH SCH ×2 (09:00→21:04)
[2018-03-25] MEDS: CEFEPIME 1 GM in D5W 50 ML IV SCH ×2 (10:48→20:11)
[2018-03-25] MEDS ORDERED: *TPN PER PHARMACY XX PRN (11:00)
[2018-03-25] MEDS ORDERED: POTASSIUM CHLORIDE 40 MEQ, LIDOCAINE JECT 2% PF 100 MG 50 MG in NS 250 ML IV ONE (11:00)
[2018-03-25 11:52] LABS: PHOSPHORUS 2.7 mg/dL (2.7-4.5)
[2018-03-25] MEDS: MEPRON PO SCH ×2 (12:16→17:40)
[2018-03-25] MEDS ORDERED: FAT EMULSIONS 250 ML IV SCH (16:45)
[2018-03-25] MEDS: SODIUM CHLORIDE IV SCH ×9 (17:24)
[2018-03-25] MEDS: [UNRECOGNIZED DRUG - OTHER] IV SCH ×9 (17:24)
[2018-03-25] MEDS: TPN CENTRAL IV SCH ×9 (17:24)
[2018-03-25] MEDS: POTASSIUM CHLORIDE IV SCH ×9 (17:24)
[2018-03-25] MEDS: FAT EMULSIONS 250 ML IV SCH (17:53)
[2018-03-25] MEDS ORDERED: DEXTROSE 50% JECT 50 ML DISP.SYRIN IVP PRN (18:00)
[2018-03-25] MEDS: INSULIN REGULAR, HUMAN 100 UNITS/ML, 10 ML VIAL (novoLIN R) SUBCUT PRN (18:04)
[2018-03-25] MEDS: traZODone HCL 50 MG TABLET (DESYREL) PO SCH (20:11)
[2018-03-26] VITALS (24 sets, daily range): BP systolic 88–127
[2018-03-26] MEDS: LevALBUTEROL HCL 1.25 MG/0.5 ML *CONC.* VIAL.NEB (XOPENEX CONC.) INH SCH ×4 (00:14→19:30)
[2018-03-26] MEDS ORDERED: HYDROmorphone 2 MG/ML VIAL ONE ×4 (00:46→18:47)
[2018-03-26] MEDS: ACETAMINOPHEN/CODEINE 300 MG-30 MG TABLET PO PRN (04:03)
[2018-03-26] MEDS: OMEPRAZOLE 20 MG CAPSULE.DR (PriLOSEC) PO SCH (05:12)
[2018-03-26] MEDS: INSULIN REGULAR, HUMAN 100 UNITS/ML, 10 ML VIAL (novoLIN R) SUBCUT PRN ×3 (05:15→23:30)
[2018-03-26 06:22] LABS: HEMATOCRIT 22.4 % (36-54); HEMOGLOBIN 7.2 g/dL (14.0-18.0); LYMPHOCYTES # (AUTO) 0.3 K/uL (1.0-5.5); LYMPHOCYTES % (AUTO) 1.7 % (20.5-51.5); MEAN CORPUSCULAR HEMOGLOBIN 32 pg (27-31); MEAN CORPUSCULAR HGB CONC 32 % (32-36); MEAN CORPUSCULAR VOLUME 99 fL (79.0-98.0); MONOCYTES # (AUTO) 0.7 K/uL (0.0-1.0); MONOCYTES % (AUTO) 3.5 % (1.7-9.3); RED BLOOD CELL COUNT(AUTO) 2.26 MIL/uL (4.2-6.2); RED CELL DISTRIBUTION WIDTH 21.3 % (9.0-15.0)
[2018-03-26 06:47] LABS: CALCIUM 9.1 mg/dL (8.4-11.0); CREATININE 0.69 mg/dL (0.55-1.30); PHOSPHORUS 2.4 mg/dL (2.7-4.5); POTASSIUM 3.6 mmol/L (3.5-5.1)
[2018-03-26 08:08] LABS: PLATELET COUNT (AUTO) 44 K/uL (130-430)
[2018-03-26] MEDS: TENOFOVIR PO SCH (08:11)
[2018-03-26] MEDS: EMTRICITABINE PO SCH (08:11)
[2018-03-26] MEDS: DARUNAVIR 800 MG PO SCH (08:12)
[2018-03-26] MEDS: CEFEPIME 1 GM in D5W 50 ML IV SCH ×2 (08:13→20:07)
[2018-03-26] MEDS: RITONAVIR 100 MG PO SCH (08:13)
[2018-03-26] MEDS: ATORVASTATIN 20 MG TABLET PO SCH (08:14)
[2018-03-26] MEDS: EPOETIN ALFA 3,000 UNITS/ML VIAL SUBCUT SCH (08:14)
[2018-03-26] MEDS: PARoxetine HCL 20 MG TABLET PO SCH (08:14)
[2018-03-26] MEDS: MEPRON PO SCH ×2 (08:14→18:02)
[2018-03-26] MEDS: PREDNISONE 20 MG TABLET PO SCH ×2 (08:14→18:02)
[2018-03-26] MEDS: BUDESONIDE 0.5 MG/2 ML AMPUL.NEB INH SCH ×2 (09:15→20:55)
[2018-03-26 10:19] LABS: NEUTROPHILS % (AUTO) 94.8 % (40.0-70.0)
[2018-03-26] MEDS: VANCOMYCIN HCL 1.25 GM/NS 250 ML IV SCH ×2 (11:56→23:29)
[2018-03-26] MEDS: TPN CENTRAL IV SCH ×9 (18:11)
[2018-03-26] MEDS: SODIUM CHLORIDE IV SCH ×9 (18:11)
[2018-03-26] MEDS: POTASSIUM CHLORIDE IV SCH ×9 (18:11)
[2018-03-26] MEDS: [UNRECOGNIZED DRUG - OTHER] IV SCH ×9 (18:11)
[2018-03-26] MEDS: FAT EMULSIONS 250 ML IV SCH (18:12)
[2018-03-26] MEDS ORDERED: PREDNISONE 20 MG TABLET ONE (18:13)
[2018-03-26] MEDS: HYDROmorphone 2 MG/ML VIAL IVP PRN ×2 (18:40→23:39)
[2018-03-26] MEDS: traZODone HCL 50 MG TABLET (DESYREL) PO SCH (20:07)
[2018-03-27] VITALS (25 sets, daily range): BP systolic 95–133
[2018-03-27] MEDS: LevALBUTEROL HCL 1.25 MG/0.5 ML *CONC.* VIAL.NEB (XOPENEX CONC.) INH SCH ×4 (01:53→20:02)
[2018-03-27] MEDS: HYDROmorphone 2 MG/ML VIAL IVP PRN ×4 (03:40→20:36)
[2018-03-27 05:18] LABS: INR 1.1 (0.80-1.20); PROTHROMBIN TIME 11.3 SECS (9.5-12.5)
[2018-03-27 05:21] LABS: ALBUMIN 1.4 g/dL (3.4-4.8); BASOPHILS # (AUTO) 0.1 K/uL (0.0-0.2); BASOPHILS % (AUTO) 0.2 % (0.0-2.0); CALCIUM 8.8 mg/dL (8.4-11.0); CREATININE 0.57 mg/dL (0.55-1.30); HEMATOCRIT 26.8 % (36-54); HEMOGLOBIN 8.8 g/dL (14.0-18.0); LYMPHOCYTES # (AUTO) 0.5 K/uL (1.0-5.5); LYMPHOCYTES % (AUTO) 1.7 % (20.5-51.5); MEAN CORPUSCULAR HEMOGLOBIN 32 pg (27-31); MEAN CORPUSCULAR HGB CONC 33 % (32-36); MEAN CORPUSCULAR VOLUME 97 fL (79.0-98.0); MONOCYTES # (AUTO) 0.9 K/uL (0.0-1.0); MONOCYTES % (AUTO) 3.4 % (1.7-9.3); NEUTROPHILS % (AUTO) 94.7 % (40.0-70.0); PHOSPHORUS 2.8 mg/dL (2.7-4.5); POTASSIUM 3.4 mmol/L (3.5-5.1); RED BLOOD CELL COUNT(AUTO) 2.76 MIL/uL (4.2-6.2); RED CELL DISTRIBUTION WIDTH 21.4 % (9.0-15.0); TOTAL BILIRUBIN 0.3 mg/dL (0.0-1.0); WHITE BLOOD COUNT (AUTO) 26.5 K/uL (4.8-10.8)
[2018-03-27 05:37] LABS: PLATELET COUNT (AUTO) 36 K/uL (130-430)
[2018-03-27] MEDS: OMEPRAZOLE 20 MG CAPSULE.DR (PriLOSEC) PO SCH (06:02)
[2018-03-27] MEDS: CEFEPIME 1 GM in D5W 50 ML IV SCH ×2 (08:11→20:35)
[2018-03-27] MEDS: PARoxetine HCL 20 MG TABLET PO SCH (08:11)
[2018-03-27] MEDS: ATORVASTATIN 20 MG TABLET PO SCH (08:12)
[2018-03-27] MEDS: MEPRON PO SCH ×2 (08:13→17:39)
[2018-03-27] MEDS: DARUNAVIR 800 MG PO SCH (08:15)
[2018-03-27] MEDS: EMTRICITABINE PO SCH (08:15)
[2018-03-27] MEDS: TENOFOVIR PO SCH (08:15)
[2018-03-27] MEDS: RITONAVIR 100 MG PO SCH (08:16)
[2018-03-27] MEDS: PREDNISONE 20 MG TABLET PO SCH ×2 (08:33→17:38)
[2018-03-27] MEDS ORDERED: FUROSEMIDE 20 MG/2 ML VIAL IVP ONE (09:30)
[2018-03-27] MEDS: BUDESONIDE 0.5 MG/2 ML AMPUL.NEB INH SCH ×3 (10:10→21:40)
[2018-03-27] MEDS: ACETAMINOPHEN/CODEINE 300 MG-30 MG TABLET PO PRN ×2 (11:05→17:38)
[2018-03-27] MEDS: LevALBUTEROL HCL 1.25 MG/0.5 ML *CONC.* VIAL.NEB (XOPENEX CONC.) INH PRN (11:26)
[2018-03-27] MEDS: INSULIN REGULAR, HUMAN 100 UNITS/ML, 10 ML VIAL (novoLIN R) SUBCUT PRN ×3 (12:24→23:41)
[2018-03-27] MEDS: VANCOMYCIN HCL 1 GM/NS PREMIX 250 ML IV SCH (16:39)
[2018-03-27] MEDS ORDERED: SODIUM CHLORIDE IV SCH ×10 (18:00)
[2018-03-27] MEDS ORDERED: TPN CENTRAL IV SCH ×10 (18:00)
[2018-03-27] MEDS ORDERED: POTASSIUM CHLORIDE IV SCH ×10 (18:00)
[2018-03-27] MEDS ORDERED: [UNRECOGNIZED DRUG - OTHER] IV SCH ×10 (18:00)
[2018-03-27] MEDS: FAT EMULSIONS 250 ML IV SCH (18:17)
[2018-03-27] MEDS: traZODone HCL 50 MG TABLET (DESYREL) PO SCH (20:34)
[2018-03-28] VITALS (24 sets, daily range): BP systolic 94–150
[2018-03-28] MEDS: HYDROmorphone 2 MG/ML VIAL IVP PRN ×6 (00:39→23:04)
[2018-03-28] MEDS: LevALBUTEROL HCL 1.25 MG/0.5 ML *CONC.* VIAL.NEB (XOPENEX CONC.) INH SCH ×4 (01:21→20:07)
[2018-03-28] MEDS: VANCOMYCIN HCL 1 GM/NS PREMIX 250 ML IV SCH ×2 (03:36→15:15)
[2018-03-28] MEDS: OMEPRAZOLE 20 MG CAPSULE.DR (PriLOSEC) PO SCH (05:40)
[2018-03-28] MEDS: INSULIN REGULAR, HUMAN 100 UNITS/ML, 10 ML VIAL (novoLIN R) SUBCUT PRN ×4 (05:46→23:10)
[2018-03-28 06:26] LABS: ALBUMIN 1.3 g/dL (3.4-4.8); CALCIUM 8.6 mg/dL (8.4-11.0); CREATININE 0.61 mg/dL (0.55-1.30); PHOSPHORUS 2.6 mg/dL (2.7-4.5); POTASSIUM 3.3 mmol/L (3.5-5.1); TOTAL BILIRUBIN 0.5 mg/dL (0.0-1.0)
[2018-03-28 06:35] LABS: EOSINOPHILS % (AUTO) 0.1 % (0.0-4.0); HEMATOCRIT 25.3 % (36-54); HEMOGLOBIN 8.3 g/dL (14.0-18.0); LYMPHOCYTES # (AUTO) 0.5 K/uL (1.0-5.5); MEAN CORPUSCULAR HEMOGLOBIN 32 pg (27-31); MEAN CORPUSCULAR HGB CONC 33 % (32-36); MEAN CORPUSCULAR VOLUME 98 fL (79.0-98.0); MONOCYTES # (AUTO) 0.9 K/uL (0.0-1.0); MONOCYTES % (AUTO) 3.2 % (1.7-9.3); NEUTROPHILS # (AUTO) 26.1 K/uL (1.8-7.7); RED BLOOD CELL COUNT(AUTO) 2.58 MIL/uL (4.2-6.2); RED CELL DISTRIBUTION WIDTH 21.5 % (9.0-15.0); WHITE BLOOD COUNT (AUTO) 27.5 K/uL (4.8-10.8)
[2018-03-28 06:45] LABS: PLATELET COUNT (AUTO) 30 K/uL (130-430)
[2018-03-28] MEDS: BUDESONIDE 0.5 MG/2 ML AMPUL.NEB INH SCH ×2 (07:56→21:07)
[2018-03-28] MEDS: ACETAMINOPHEN/CODEINE 300 MG-30 MG TABLET PO PRN ×3 (07:59→20:57)
[2018-03-28 08:00] LABS: NEUTROPHILS % (AUTO) 94.7 % (40.0-70.0)
[2018-03-28] MEDS: CEFEPIME 1 GM in D5W 50 ML IV SCH ×2 (08:36→20:15)
[2018-03-28] MEDS: PREDNISONE 20 MG TABLET PO SCH ×2 (08:36→18:02)
[2018-03-28] MEDS: PARoxetine HCL 20 MG TABLET PO SCH (08:36)
[2018-03-28] MEDS: ATORVASTATIN 20 MG TABLET PO SCH (08:37)
[2018-03-28] MEDS: MEPRON PO SCH ×2 (08:37→18:02)
[2018-03-28] MEDS: EMTRICITABINE PO SCH (08:44)
[2018-03-28] MEDS: DARUNAVIR 800 MG PO SCH (08:44)
[2018-03-28] MEDS: TENOFOVIR PO SCH (08:44)
[2018-03-28] MEDS: RITONAVIR 100 MG PO SCH (08:44)
[2018-03-28] MEDS: EPOETIN ALFA 3,000 UNITS/ML VIAL SUBCUT SCH (09:14)
[2018-03-28] MEDS ORDERED: POTASSIUM CHLORIDE 20 MEQ TAB.PRT.SR PO ONE (12:00)
[2018-03-28] MEDS ORDERED: SODIUM CHLORIDE IV SCH ×10 (18:00)
[2018-03-28] MEDS ORDERED: POTASSIUM CHLORIDE IV SCH ×10 (18:00)
[2018-03-28] MEDS ORDERED: [UNRECOGNIZED DRUG - OTHER] IV SCH ×10 (18:00)
[2018-03-28] MEDS ORDERED: TPN CENTRAL IV SCH ×10 (18:00)
[2018-03-28] MEDS: FAT EMULSIONS 250 ML IV SCH (18:07)
[2018-03-28] MEDS: traZODone HCL 50 MG TABLET (DESYREL) PO SCH (20:13)
[2018-03-29] VITALS (24 sets, daily range): BP systolic 97–126
[2018-03-29] MEDS: LevALBUTEROL HCL 1.25 MG/0.5 ML *CONC.* VIAL.NEB (XOPENEX CONC.) INH SCH ×4 (01:03→19:53)
[2018-03-29] MEDS: HYDROmorphone 2 MG/ML VIAL IVP PRN ×5 (02:42→19:52)
[2018-03-29] MEDS: VANCOMYCIN HCL 1 GM/NS PREMIX 250 ML IV SCH ×2 (04:31→16:33)
[2018-03-29] MEDS: OMEPRAZOLE 20 MG CAPSULE.DR (PriLOSEC) PO SCH (05:45)
[2018-03-29] MEDS: INSULIN REGULAR, HUMAN 100 UNITS/ML, 10 ML VIAL (novoLIN R) SUBCUT PRN ×3 (05:58→18:21)
[2018-03-29 06:08] LABS: HEMATOCRIT 25.5 % (36-54); HEMOGLOBIN 8.5 g/dL (14.0-18.0); MEAN CORPUSCULAR HEMOGLOBIN 33 pg (27-31); MEAN CORPUSCULAR HGB CONC 33 % (32-36); MEAN CORPUSCULAR VOLUME 98 fL (79.0-98.0); RED BLOOD CELL COUNT(AUTO) 2.59 MIL/uL (4.2-6.2); RED CELL DISTRIBUTION WIDTH 21.8 % (9.0-15.0)
[2018-03-29 06:26] LABS: WHITE BLOOD COUNT (AUTO) 34.6 K/uL (4.8-10.8)
[2018-03-29 06:27] LABS: PLATELET COUNT (AUTO) 23 K/uL (130-430)
[2018-03-29 06:47] LABS: ALBUMIN 1.4 g/dL (3.4-4.8); CALCIUM 8.9 mg/dL (8.4-11.0); CREATININE 0.74 mg/dL (0.55-1.30); PHOSPHORUS 2.6 mg/dL (2.7-4.5); TOTAL BILIRUBIN 0.5 mg/dL (0.0-1.0)
[2018-03-29 06:58] LABS: BASOPHILS % (MANUAL) 0 % (0-2); EOSINOPHILS % (MANUAL) 0 % (0-7); LYMPHOCYTES % (MANUAL) 4 % (20-46); MONOCYTES % (MANUAL) 1 % (0-11)
[2018-03-29] MEDS: CEFEPIME 1 GM in D5W 50 ML IV SCH ×2 (08:08→21:09)
[2018-03-29] MEDS: ATORVASTATIN 20 MG TABLET PO SCH (08:09)
[2018-03-29] MEDS: MEPRON PO SCH ×2 (08:09→17:41)
[2018-03-29] MEDS: DARUNAVIR 800 MG PO SCH (08:10)
[2018-03-29] MEDS: PREDNISONE 20 MG TABLET PO SCH ×2 (08:10→17:41)
[2018-03-29] MEDS: PARoxetine HCL 20 MG TABLET PO SCH (08:10)
[2018-03-29] MEDS: EMTRICITABINE PO SCH (08:11)
[2018-03-29] MEDS: TENOFOVIR PO SCH (08:11)
[2018-03-29] MEDS: RITONAVIR 100 MG PO SCH (08:12)
[2018-03-29] MEDS: BUDESONIDE 0.5 MG/2 ML AMPUL.NEB INH SCH ×2 (10:06→20:07)
[2018-03-29] MEDS: ACETAMINOPHEN/CODEINE 300 MG-30 MG TABLET PO PRN (13:49)
[2018-03-29] MEDS: POTASSIUM CHLORIDE IV SCH ×10 (17:40)
[2018-03-29] MEDS: TPN CENTRAL IV SCH ×10 (17:40)
[2018-03-29] MEDS: [UNRECOGNIZED DRUG - OTHER] IV SCH ×10 (17:40)
[2018-03-29] MEDS: FAT EMULSIONS 250 ML IV SCH (17:40)
[2018-03-29] MEDS: SODIUM CHLORIDE IV SCH ×10 (17:40)
[2018-03-29] MEDS: traZODone HCL 50 MG TABLET (DESYREL) PO SCH (21:09)
[2018-03-30] VITALS (25 sets, daily range): BP systolic 91–138
[2018-03-30] MEDS: LevALBUTEROL HCL 1.25 MG/0.5 ML *CONC.* VIAL.NEB (XOPENEX CONC.) INH SCH ×4 (00:21→19:39)
[2018-03-30] MEDS: HYDROmorphone 2 MG/ML VIAL IVP PRN ×5 (01:15→21:44)
[2018-03-30] MEDS: VANCOMYCIN HCL 1 GM/NS PREMIX 250 ML IV SCH ×2 (03:29→16:07)
[2018-03-30] MEDS: INSULIN REGULAR, HUMAN 100 UNITS/ML, 10 ML VIAL (novoLIN R) SUBCUT PRN ×5 (05:28→23:27)
[2018-03-30] MEDS: OMEPRAZOLE 20 MG CAPSULE.DR (PriLOSEC) PO SCH (05:28)
[2018-03-30 06:30] LABS: CALCIUM 9.1 mg/dL (8.4-11.0); CREATININE 0.71 mg/dL (0.55-1.30); POTASSIUM 4.7 mmol/L (3.5-5.1)
[2018-03-30 06:37] LABS: ALBUMIN 1.4 g/dL (3.4-4.8); PHOSPHORUS 3.2 mg/dL (2.7-4.5); TOTAL BILIRUBIN 0.9 mg/dL (0.0-1.0)
[2018-03-30] MEDS: CEFEPIME 1 GM in D5W 50 ML IV SCH ×2 (08:33→20:10)
[2018-03-30] MEDS: PARoxetine HCL 20 MG TABLET PO SCH (08:33)
[2018-03-30] MEDS: PREDNISONE 20 MG TABLET PO SCH ×2 (08:33→18:18)
[2018-03-30] MEDS: ATORVASTATIN 20 MG TABLET PO SCH (08:33)
[2018-03-30] MEDS: MEPRON PO SCH ×2 (08:33→18:18)
[2018-03-30] MEDS: DARUNAVIR 800 MG PO SCH (08:34)
[2018-03-30] MEDS: RITONAVIR 100 MG PO SCH (08:36)
[2018-03-30] MEDS: EMTRICITABINE PO SCH (08:37)
[2018-03-30] MEDS: TENOFOVIR PO SCH (08:37)
[2018-03-30 08:44] LABS: EOSINOPHILS # (AUTO) 0.1 K/uL (0.0-0.4); EOSINOPHILS % (AUTO) 0.2 % (0.0-4.0); HEMOGLOBIN 9.3 g/dL (14.0-18.0); LYMPHOCYTES # (AUTO) 0.8 K/uL (1.0-5.5); LYMPHOCYTES % (AUTO) 1.7 % (20.5-51.5); MEAN CORPUSCULAR HEMOGLOBIN 32 pg (27-31); MEAN CORPUSCULAR HGB CONC 32 % (32-36); MEAN CORPUSCULAR VOLUME 100 fL (79.0-98.0); MONOCYTES # (AUTO) 0.9 K/uL (0.0-1.0); MONOCYTES % (AUTO) 1.8 % (1.7-9.3); NEUTROPHILS # (AUTO) 47.2 K/uL (1.8-7.7); RED BLOOD CELL COUNT(AUTO) 2.89 MIL/uL (4.2-6.2); RED CELL DISTRIBUTION WIDTH 21.7 % (9.0-15.0)
[2018-03-30] MEDS: BUDESONIDE 0.5 MG/2 ML AMPUL.NEB INH SCH ×2 (08:51→21:10)
[2018-03-30 09:16] LABS: PLATELET COUNT (AUTO) 26 K/uL (130-430)
[2018-03-30 09:48] LABS: NEUTROPHILS % (AUTO) 96.3 % (40.0-70.0)
[2018-03-30] MEDS ORDERED: FUROSEMIDE 20 MG/2 ML VIAL IVP ONE (11:00)
[2018-03-30] MEDS: POTASSIUM CHLORIDE IV SCH ×10 (17:39)
[2018-03-30] MEDS: TPN CENTRAL IV SCH ×10 (17:39)
[2018-03-30] MEDS: [UNRECOGNIZED DRUG - OTHER] IV SCH ×10 (17:39)
[2018-03-30] MEDS: SODIUM CHLORIDE IV SCH ×10 (17:39)
[2018-03-30] MEDS: FAT EMULSIONS 250 ML IV SCH (17:40)
[2018-03-30] MEDS: LevALBUTEROL HCL 1.25 MG/0.5 ML *CONC.* VIAL.NEB (XOPENEX CONC.) INH PRN (17:54)
[2018-03-30] MEDS: traZODone HCL 50 MG TABLET (DESYREL) PO SCH (20:10)
[2018-03-31] VITALS (20 sets, daily range): BP systolic 93–148
[2018-03-31] MEDS: LevALBUTEROL HCL 1.25 MG/0.5 ML *CONC.* VIAL.NEB (XOPENEX CONC.) INH SCH ×5 (00:36→19:50)
[2018-03-31] MEDS: HYDROmorphone 2 MG/ML VIAL IVP PRN ×4 (01:24→13:50)
[2018-03-31] MEDS: VANCOMYCIN HCL 1 GM/NS PREMIX 250 ML IV SCH (03:27)
[2018-03-31] MEDS: INSULIN REGULAR, HUMAN 100 UNITS/ML, 10 ML VIAL (novoLIN R) SUBCUT PRN ×2 (05:41→12:22)
[2018-03-31] MEDS: OMEPRAZOLE 20 MG CAPSULE.DR (PriLOSEC) PO SCH (05:55)
[2018-03-31 06:24] LABS: BASOPHILS # (AUTO) 0.4 K/uL (0.0-0.2); BASOPHILS % (AUTO) 0.7 % (0.0-2.0); HEMATOCRIT 25.9 % (36-54); HEMOGLOBIN 8.4 g/dL (14.0-18.0); LYMPHOCYTES # (AUTO) 0.8 K/uL (1.0-5.5); LYMPHOCYTES % (AUTO) 1.5 % (20.5-51.5); MEAN CORPUSCULAR HEMOGLOBIN 33 pg (27-31); MEAN CORPUSCULAR HGB CONC 32 % (32-36); MEAN CORPUSCULAR VOLUME 101 fL (79.0-98.0); MONOCYTES # (AUTO) 1.4 K/uL (0.0-1.0); MONOCYTES % (AUTO) 2.7 % (1.7-9.3); NEUTROPHILS # (AUTO) 49.1 K/uL (1.8-7.7); RED BLOOD CELL COUNT(AUTO) 2.57 MIL/uL (4.2-6.2)
[2018-03-31 06:52] LABS: ALBUMIN 1.3 g/dL (3.4-4.8); CALCIUM 8.7 mg/dL (8.4-11.0); CREATININE 0.68 mg/dL (0.55-1.30); POTASSIUM 4.7 mmol/L (3.5-5.1); TOTAL BILIRUBIN 0.9 mg/dL (0.0-1.0)
[2018-03-31 07:05] LABS: PLATELET COUNT (AUTO) 15 K/uL (130-430); WHITE BLOOD COUNT (AUTO) 51.7 K/uL (4.8-10.8)
[2018-03-31] MEDS: PREDNISONE 20 MG TABLET PO SCH (08:00)
[2018-03-31] MEDS: TENOFOVIR PO SCH (08:00)
[2018-03-31] MEDS: EMTRICITABINE PO SCH (08:00)
[2018-03-31] MEDS: ATORVASTATIN 20 MG TABLET PO SCH (08:00)
[2018-03-31] MEDS: MEPRON PO SCH (08:00)
[2018-03-31] MEDS: DARUNAVIR 800 MG PO SCH (08:00)
[2018-03-31] MEDS: RITONAVIR 100 MG PO SCH (08:01)
[2018-03-31] MEDS: PARoxetine HCL 20 MG TABLET PO SCH (08:01)
[2018-03-31] MEDS: EPOETIN ALFA 3,000 UNITS/ML VIAL SUBCUT SCH (08:57)
[2018-03-31] MEDS: BUDESONIDE 0.5 MG/2 ML AMPUL.NEB INH SCH ×2 (09:00→20:46)
[2018-03-31 09:55] LABS: NEUTROPHILS % (AUTO) 95.1 % (40.0-70.0)
[2018-03-31] MEDS ORDERED: FUROSEMIDE 20 MG/2 ML VIAL IVP ONE (10:45)
[2018-03-31] MEDS ORDERED: CEFEPIME 1 GM in D5W 50 ML IV ONE (11:00)
[2018-03-31] MEDS: metroNIDAZOLE 500 mg/NS 100 ML IV SCH ×2 (11:58→23:48)
[2018-03-31] MEDS ORDERED: K PHOS IV SCH ×10 (18:00)
[2018-03-31] MEDS ORDERED: TPN CENTRAL IV SCH ×10 (18:00)
[2018-03-31] MEDS ORDERED: [UNRECOGNIZED DRUG - OTHER] IV SCH ×10 (18:00)
[2018-03-31] MEDS ORDERED: MAGNESIUM SULFATE IV SCH ×10 (18:00)
[2018-03-31] MEDS ORDERED: SODIUM CHLORIDE IV SCH ×10 (18:00)
[2018-03-31] MEDS: VANCOMYCIN HCL 750 MG in NS 250 ML IV SCH (20:55)
[2018-03-31] MEDS: traZODone HCL 50 MG TABLET (DESYREL) PO SCH (20:56)
[2018-03-31] MEDS ORDERED: CEFEPIME 1 GM in D5W 50 ML IV SCH (21:00)
[2018-03-31] MEDS ORDERED: HYDROmorphone 2 MG/ML VIAL IVP PRN (23:30)
[2018-04-01] VITALS (11 sets, daily range): BP systolic 69–147
[2018-04-01] MEDS: INSULIN REGULAR, HUMAN 100 UNITS/ML, 10 ML VIAL (novoLIN R) SUBCUT PRN ×2 (00:05→05:33)
[2018-04-01] MEDS: LevALBUTEROL HCL 1.25 MG/0.5 ML *CONC.* VIAL.NEB (XOPENEX CONC.) INH SCH ×2 (00:51→07:09)
[2018-04-01] MEDS: OMEPRAZOLE 20 MG CAPSULE.DR (PriLOSEC) PO SCH (05:35)
[2018-04-01] MEDS ORDERED: NOREPINEPHRINE BITARTRATE 4 MG in NS 246 ML IV PRN (07:45)
[2018-04-01] MEDS: VANCOMYCIN HCL 750 MG in NS 250 ML IV SCH (07:56)
[2018-04-01] MEDS: PARoxetine HCL 20 MG TABLET PO SCH (09:00)
[2018-04-01] MEDS: TENOFOVIR PO SCH (09:00)
[2018-04-01] MEDS: ATORVASTATIN 20 MG TABLET PO SCH (09:00)
[2018-04-01] MEDS: EMTRICITABINE PO SCH (09:00)
[2018-04-01] MEDS: DARUNAVIR 800 MG PO SCH (09:00)
[2018-04-01] MEDS: RITONAVIR 100 MG PO SCH (09:00)
[2018-04-01 09:24] LABS: HEMOGLOBIN 7.7 g/dL (14.0-18.0)
[2018-04-01] MEDS: BUDESONIDE 0.5 MG/2 ML AMPUL.NEB INH SCH (09:24)
[2018-04-01 09:30] LABS: CALCIUM 8.7 mg/dL (8.4-11.0); CREATININE 1.48 mg/dL (0.55-1.30); POTASSIUM 5.5 mmol/L (3.5-5.1)
[2018-04-01 09:35] LABS: ALBUMIN 1.1 g/dL (3.4-4.8); PHOSPHORUS 4.8 mg/dL (2.7-4.5); TOTAL BILIRUBIN 2.3 mg/dL (0.0-1.0)
[2018-04-01 09:47] LABS: HEMATOCRIT 24.4 % (36-54); MEAN CORPUSCULAR HEMOGLOBIN 33 pg (27-31); MEAN CORPUSCULAR HGB CONC 32 % (32-36); MEAN CORPUSCULAR VOLUME 104 fL (79.0-98.0); RED BLOOD CELL COUNT(AUTO) 2.36 MIL/uL (4.2-6.2); RED CELL DISTRIBUTION WIDTH 22.3 % (9.0-15.0)
[2018-04-01 09:53] LABS: WHITE BLOOD COUNT (AUTO) 55.8 K/uL (4.8-10.8)
[2018-04-01 09:54] LABS: PLATELET COUNT (AUTO) 12 K/uL (130-430)
[2018-04-01] MEDS ORDERED: EPINEPHrine JECT 1 MG/10 ML SYR IVP ONE (10:00)
[2018-04-01 10:22] LABS: BAND % (MANUAL) 5 % (0-6); BASOPHILS % (MANUAL) 0 % (0-2); EOSINOPHILS % (MANUAL) 0 % (0-7); LYMPHOCYTES % (MANUAL) 2 % (20-46); MONOCYTES % (MANUAL) 3 % (0-11)
[2018-04-01] MEDS ORDERED: INSULIN REGULAR IV SCH ×6 (18:00)
[2018-04-01] MEDS ORDERED: MAGNESIUM SULFATE IV SCH ×6 (18:00)
[2018-04-01] MEDS ORDERED: TPN CENTRAL IV SCH ×6 (18:00)
[2018-04-01] MEDS ORDERED: [UNRECOGNIZED DRUG - OTHER] IV SCH ×6 (18:00)
[2018-04-01] MEDS ORDERED: MVI IV SCH ×6 (18:00)
[2018-04-02] MEDS ORDERED: VANCOMYCIN HCL 1 GM/NS PREMIX 250 ML IV SCH (08:00)
== END 2018-04-01 10:03 | disposition expired | DRG 974 ==
LOC: SED 18:36 → STU 20:59 → SIC 21:00 → STU 21:22 → SIC 22:31
PROVIDERS: ADMIT Family Medicine; ATTEND Family Medicine
PROC: 30233N1 Transfusion of Nonautologous Red Blood Cells into Peripheral Vein, Percutaneous Approach (ICD-10-PCS; 2018-03-14)
PROC: 0W993ZZ Drainage of Right Pleural Cavity, Percutaneous Approach (ICD-10-PCS; 2018-03-14)
PROC: 3E0336Z Introduction of Nutritional Substance into Peripheral Vein, Percutaneous Approach (ICD-10-PCS; 2018-03-16)
PROC: 5A09457 Assistance with Respiratory Ventilation, 24-96 Consecutive Hours, Continuous Positive Airway Pressure (ICD-10-PCS; 2018-03-21)
PROC: 5A09357 Assistance with Respiratory Ventilation, Less than 24 Consecutive Hours, Continuous Positive Airway Pressure (ICD-10-PCS; 2018-03-22)
PROC: 5A09557 Assistance with Respiratory Ventilation, Greater than 96 Consecutive Hours, Continuous Positive Airway Pressure (ICD-10-PCS; 2018-03-22)
PROC: 02HV33Z Insertion of Infusion Device into Superior Vena Cava, Percutaneous Approach (ICD-10-PCS; 2018-03-25)
PROC: B548ZZA Ultrasonography of Superior Vena Cava, Guidance (ICD-10-PCS; 2018-03-25)
PROC: 30233R1 Transfusion of Nonautologous Platelets into Peripheral Vein, Percutaneous Approach (ICD-10-PCS; principal; 2018-03-31)
DX: A41.9 Sepsis, unspecified organism (principal); J96.01 Acute respiratory failure with hypoxia; B20 Human immunodeficiency virus [HIV] disease; J15.6 Pneumonia due to other Gram-negative bacteria; E43 Unspecified severe protein-calorie malnutrition; C20 Malignant neoplasm of rectum; C78.00 Secondary malignant neoplasm of unspecified lung; J90 Pleural effusion, not elsewhere classified; E87.1 Hypo-osmolality and hyponatremia; D69.6 Thrombocytopenia, unspecified; D63.8 Anemia in other chronic diseases classified elsewhere; Z51.5 Encounter for palliative care; I95.9 Hypotension, unspecified; E78.5 Hyperlipidemia, unspecified; Z85.048 Personal history of other malignant neoplasm of rectum, rectosigmoid junction, and anus; Z87.891 Personal history of nicotine dependence; Z68.26 Body mass index [BMI] 26.0-26.9, adult; Z88.1 Allergy status to other antibiotic agents; Z79.899 Other long term (current) drug therapy; Z88.2 Allergy status to sulfonamides; Z88.0 Allergy status to penicillin; Z92.21 Personal history of antineoplastic chemotherapy
CPT/HCPCS: 32555; 36415; 36600; 71045; 71250-TC; 80048; 80053; 80202-TC; 81003; 82272; 82607; 82668; 82728; 82746; 82803-TC; 82947-TC; 82962; 83540-TC; 83550-TC; 83605; 83615-TC; 83735-TC; 83880; 84100-TC; 84155-TC; 84157-TC; 84478-TC; 84484; 85007; 85025; 85027; 85384-TC; 85610-TC; 85730-TC; 86710; 86886; 86900; 86901; 86920; 87040-TC; 87070-TC; 87081; 87101; 87116; 88108; 88305; 89051-TC; 89060-TC; 93005; 93970; 94640; 94660; 96365; 96367; 97110-GP; 97112-GP; 97163; 99285; C1729; C1751; G9035; J0171; J0456; J0692; J0885; J1170; J1450; J1580; J1815; J1940; J2185; J3370; J3475; J3480; J3490; J7030; J7040; J7050; J7060; J7131; J7512; J7612; J7613; J7626; P9021; P9034; P9046